=== PATIENT | male | born 1955 | race Caucasian/White ===

== ENCOUNTER 2018-08-03 11:56 | Day surgery (SDC) | payer OTHER ==
[~2018-08-03 11:56] MED LIST: CEFAZOLIN 2 GM/50 ML (PMX) 50 ML IVPB; SEVOFLURANE 15 MIN
[2018-08-03] MEDS: SOD CHLORIDE 0.9% 1,000 ML IV (12:48)
[2018-08-03 12:52] LABS: ADD MAN DIFF? NO
[2018-08-03 12:53] LABS: WHITE BLOOD COUNT 5.4 10^3/ul (4.8-10.8)
[2018-08-03 12:53] LABS: BASOPHILS % 0.7 % (0.0-2.0); EOSINOPHILS # 0.2 10^3/ul (0.0-0.5); EOSINOPHILS % 3.9 % (0.0-7.0); HEMOGLOBIN 14.2 g/dl (14.0-18.0); LYMPHOCYTES # 1.2 10^3/ul (0.8-2.9); LYMPHOCYTES % 22.8 % (15.0-51.0); MEAN CORPUSCULAR VOLUME 81.7 fl (82.0-101.0); MEAN PLATELET VOLUME 9.6 fl (7.4-10.4); MONOCYTE # 0.5 10^3/ul (0.3-0.9); MONOCYTES % 8.8 % (0.0-11.0); NEUTROPHIL # 3.4 10^3/ul (1.6-7.5); NEUTROPHILS % 63.4 % (39.0-77.0); PLATELET COUNT 238 10^3/UL (140-415); RED BLOOD COUNT 5.26 10^6/ul (4.70-6.10); RED CELL DISTRIBUTION WIDTH 13.5 % (11.5-14.5)
[2018-08-03 13:14] LABS: INR 0.87; PROTIME 11.9 Sec (11.9-14.9); PT RATIO 0.9
[2018-08-03 13:15] LABS: PARTIAL THROMBOPLASTIN TIME 28.9 Sec (23.0-35.0)
[2018-08-03 13:47] LABS: ALANINE AMINOTRANSFERASE 16 IU/L (13-69); ALBUMIN 3.9 g/dl (3.3-4.9); ALBUMIN/GLOBULIN RATIO 1.21; ALKALINE PHOSPHATASE 118 IU/L (42-121); ANION GAP 8 (5-13); ASPARTATE AMINO TRANSFERASE 18 IU/L (15-46); BILIRUBIN,INDIRECT 0.4 mg/dl (0-1.1); BILIRUBIN,TOTAL 0.4 mg/dl (0.2-1.3); BLOOD UREA NITROGEN 10 mg/dl (7-20); CALCIUM 9.1 mg/dl (8.4-10.2); CARBON DIOXIDE 28 mmol/L (21-31); CHLORIDE 108 mmol/L (97-110); CREATININE 0.79 mg/dl (0.61-1.24); Estimated GFR > 60 mL/min (>60); GLUCOSE 100 mg/dl (70-220); POTASSIUM 3.8 mmol/L (3.5-5.1); SODIUM 144 mmol/L (135-144); TOTAL PROTEIN 7.1 g/dl (6.1-8.1)
[2018-08-03] MEDS ORDERED: MIDAZOLAM 1 MG/ML 2 ML INJ (14:01)
[2018-08-03] MEDS: BUPIVACAINE 0.25% (MPF) 30 ML INJ (14:20)
[2018-08-03] MEDS ORDERED: HYDROCODONE/APAP (5/325) TAB PO (14:30)
[2018-08-03] MEDS ORDERED: PROPOFOL 20 ML (14:36)
[2018-08-03] MEDS ORDERED: CEFAZOLIN 1 GM INJ (14:36)
[2018-08-03] MEDS ORDERED: LIDOCAINE 2% (SDV) 5 ML INJ (14:36)
[2018-08-03] MEDS ORDERED: ONDANSETRON 4 MG INJ (14:37)
[2018-08-03] MEDS ORDERED: LABETALOL HCL 20MG INJ IV (15:00)
[2018-08-03] MEDS ORDERED: MEPERIDINE 25 MG INJ IV (15:00)
[2018-08-03] MEDS ORDERED: METOCLOPRAMIDE 10 MG INJ IV (15:00)
[2018-08-03] MEDS ORDERED: HYDROmorphONE 1 MG/5 ML IV SYRINGE IV ×2 (15:00)
[2018-08-03] MEDS ORDERED: DIPHENHYDRAMINE 50 MG INJ IV (15:00)
[2018-08-03] MEDS ORDERED: ONDANSETRON 4 MG INJ IV (15:00)
[2018-08-03] MEDS ORDERED: FENTAnyl 50 MCG/ML VIAL IV (15:00)
== END 2018-08-03 16:00 | disposition home or self-care (01) ==
LOC: SDS 11:56
DX: D17.1 Benign lipomatous neoplasm of skin and subcutaneous tissue of trunk (principal); J45.909 Unspecified asthma, uncomplicated; E66.9 Obesity, unspecified; R94.31 Abnormal electrocardiogram [ECG] [EKG]
CPT/HCPCS: 14001; 71045; 80053; 85025; 85610; 85730; 88307; 93005